=== PATIENT | female | born 1955 | race Caucasian/White ===

== ENCOUNTER 2017-09-07 11:36 | Inpatient (IN) | payer OTHER ==
[~2017-09-07] VITALS: Ht 162.6 cm; Wt 59.0 kg
[~2017-09-07 11:36] MED LIST: ADVIL200 MG PO; APAP ARTHRITIS650 MG PO; CIPRO 500MG TA500 MG PO; CIPRO500 M1 PO; FLAGYL 25O MG250 M1 PO; FLAGYL500 MG PO; GAS-X80 MG PO; LISINOPRIL AND1 TAB PO; LISINOPRIL-HCTZ 10-1; LISINOPRIL10 M1 PO; OXYCODONE5 M1 PO; PERCOCET 325 MG1 TA2 PO; VALIUM10 M1 PO
--- NOTE | 2017-09-07 13:16 | ED GI/GU/ABDOMINAL COMPLAINT ---
History of Present Illness General Chief Complaint: Abdominal Pain/Flank Pain Stated Complaint: L SIDE ABD PAIN Source: patient Exam Limitations: no limitations Allergies Coded Allergies: Sulfa (Sulfonamide Antibiotics) (UNKNOWN 11/07/15) Reconcile Medications Diazepam (Valium) 10 MG TABLET 0.25 TAB PO DAILY PRN ANXIETY (Reported) Lisinopril 10 MG TABLET 1 TAB PO DAILY HEART (Reported) Triage Note: PT TO ED C/O LEFT SIDED ABD PAIN X A FEW DAYS. STATES LEFT SIDE IS SWOLLEN. ALSO C/O SYNCOPE THIS AM. HEARD "A CRASH" AND SHE WAS ON THE FLOOR. UNKNOWN HEAD STRIKE. C/O NAUSEA. DENIES V/D. TO EKG [place]. Triage Nurses Notes Reviewed? yes ? N Is pt currently ? No HPI: Ms. Sawyer is a 62 yo f with a past medical history significant for acute diverticulitis s/p bowel resection, sessile polyps (colonoscopy 2016), hypertension, who presents to the ED with LLQ abdominal pain and nausea for few days. She also states that she gets a "fluttery" feeling in her lower abdomen with subsequent pain. Patient also reports this morning she was on her way to the bathroom and woke up on the floor. Her who witnessed the fall reported she hit that door on her way out the room and lost consciousness for a couple of seconds. She denies fever, chills, SOB, palpitations, vomiting, urinary or bowel symptoms (Rj MILLS,[facility]) Vital Signs & Intake/Output Vital Signs & Intake/Output Vital Signs Date Time Temp Pulse Resp B/P B/P Pulse O2 O2 Flow FiO2 Mean Ox Delivery Rate 09/08 1437 98.6 74 20 110/72 93 Room Air 09/08 0925 115/80 09/08 0543 98.0 67 20 100/64 94 Room Air 09/08 0000 94 Room Air 09/07 2242 98.3 84 18 116/64 94 Room Air 09/07 1919 97.8 78 20 135/84 98 09/07 1844 98.3 91 19 124/81 99 Room Air 09/07 1828 98.5 ED Intake and Output 09/08 0000 09/07 1200 Intake Total 320 Output Total 300 Balance 20 Intake, IV 320 Intake, Oral 0 Output, Urine 300 Patient 130 lb 130 lb Weight Weight Reported by Patient Estimated Measurement Method (Arsalan Page MD) Past History Travel History Traveled to [place] past 21 day No Medical History Any Pertinent Medical History? see below for history Neurological: NONE EENT: NONE Cardiovascular: hypertension Respiratory: NONE Gastrointestinal: diverticulitis, BOWEL OBSTRUCTION Hepatic: NONE Renal: NONE Musculoskeletal: NONE Psychiatric: NONE Endocrine: NONE Blood Disorders: NONE Cancer(s): NONE CHROMIUM PLATER/Reproductive: NONE History of MRSA: No History of VRE: No History of CDIFF: No Surgical History Surgical History: appendectomy, BOWEL RESECTION LYSIS OF ADHESIONS Psychosocial History Who do you live with Patient and family Services at Home None What is your primary language Mongolian Tobacco Use: Quit >30 days ago ETOH Use: denies use Illicit Drug Use: denies illicit drug use Family History Family History, If Any: SISTER FHx: diverticulitis Hx Contributory? Yes (Rj MILLS,Johnathon) Review of Systems Review of Systems Constitutional: Reports: see HPI. (Johnathon De La Rosa MD) Physical Exam Physical Exam General Appearance: well developed/nourished, no apparent distress, alert, awake Head: atraumatic, normal appearance Eyes: Bilateral: normal appearance, PERRL, EOMI. Ears, Nose, Throat, Mouth: hearing grossly normal, moist mucous membrane Neck: normal inspection, supple, full range of motion Respiratory: normal breath sounds, lungs clear Gastrointestinal: LLQ tenderness Extremities: normal range of motion Core Measures ACS in differential dx? No Sepsis Present: No Sepsis Focused Exam Completed? No (Johnathon De La Rosa MD) Progress Radiology Impression: CT ABD/Pel: Acute diverticulitis with ? microperforation CT head: negative Initial ED EKG: none (Johnathon De La Rosa MD) Plan of Care: Orders Procedure Date/time Status CBC WITHOUT DIFFERENTIAL 09/09 06 Active Clear Liquid Diet 09/08 D Active Nothing by Mouth 09/08 B Complete CBC WITHOUT DIFFERENTIAL 09/08 0600 Complete BASIC ELECTROLYTES PLUS BUN&CR 09/08 0600 Complete Vital Signs 09/07 2350 Active Teach/Educate 09/07 2350 Active Pain Treatment and Response 09/07 2350 Active Nutritional Intake, Monitor 09/07 2350 Active Isolation 09/07 2350 Active Intake & Output 09/07 2350 Active Patient Care Conference 09/07 2350 Active Activity/Ambulation 09/07 2350 Active Intake & Output 09/07 2250 Active Vital Signs 09/07 224 Active TRANSFER ORDERS 09/07 193 Complete Pathway - chart 09/07 190 Active Patient Data 09/07 1907 Active Code Status 09/07 190 Active Admit to inpatient 09/07 UNK Active VTE Mechanical Prophylaxis 09/07 UNK Active Vital Signs 09/07 UNK Complete Intake & Output 09/07 UNK Complete Activity/Ambulation 09/07 UNK Complete Current Medications Sig/Eliza Start time Last Medication Dose Stop Time Status Admin Ceftriaxone Sodium 1,000 MG DAILY 09/08 1000 AC 09/08 (Rocephin) 0925 Lisinopril 10 MG DAILY 09/08 1000 AC 09/08 (Prinivil) 0925 Ceftriaxone Sodium 1,000 MG ONCE ONE 09/08 0800 CAN (Rocephin) 09/08 0801 Omeprazole 40 MG DAILY AC 09/08 0700 AC 09/08 (Prilosec) 0611 Heparin Sodium 5,000 UNIT Q8 09/08 0600 AC (Porcine) Metronidazole 500 MG IQ8 09/08 0000 AC 09/08 (Flagyl) 1649 N/A 1 UNIT (No Carrier) Acetaminophen 650 MG Q6P PRN 09/07 2245 AC (Tylenol) Acetaminophen 1,000 MG Q6H PRN 09/07 2245 AC 09/08 (Ofirmev) 1653 N/A 1 UNIT (No Carrier) Morphine Sulfate 4 MG Q2P PRN 09/07 2245 AC (Morphine) Ondansetron HCl 4 MG Q6P PRN 09/07 2245 AC (Zofran) Oxycodone/ 1 TAB Q4P PRN 09/07 2245 AC Acetaminophen (Percocet) Oxycodone/ 2 TAB Q4P PRN 09/07 2245 AC Acetaminophen (Percocet) Promethazine HCl 12.5 MG Q6P PRN 09/07 2245 AC (Phenergen) 09/14 2244 Dextrose/Sodium 1,000 ML Q10H 09/07 2230 AC 09/08 Chloride 0925 (D5-Normal Saline) Diazepam 2 MG BID PRN 09/07 1945 AC 09/08 (Valium) 1252 Laboratory Tests 09/08/17 0721: Anion Gap 9, Estimated GFR > 60, BUN/Creatinine Ratio 15.7, CBC w Diff NO MAN DIFF REQ, RBC 3.87 L, MCV 88.3, MCH 29.6, MCHC 33.5, RDW 13.0, MPV 8.2, Gran % 72.2, Lymphocytes % 15.3 L, Monocytes % 10.4 H, Eosinophils % 1.6, Basophils % 0.5, Absolute Granulocytes 5.7, Absolute Lymphocytes 1.2, Absolute Monocytes 0.8 H, Absolute Eosinophils 0.1, Absolute Basophils 0 Hand-Off Endorsed To: Brigido Avila MD Endorsed Time: 1521 Pending: CT (abd) (Arsalan Page MD) Differential Diagnosis: bowel obstruction, diverticulitis, ischemic bowel, perforated viscous, COLITIS Comments: 09/07/2017 6:57:31 PM patient signed out to me by resident at shift change advisor. Patient is being evaluated by the surgical service and it seems will be admitted to Dr. Lin. 09/07/2017 7:17:18 PM according to surgical PA patient will be admitted for acute diverticulitis to the surgical service. (Brigido Avila MD) Departure Departure Condition: Stable Referrals: Hunter Wilde MD (PCP/Family) Departure Forms: Customer Survey General Discharge Information Comments Spoke with Dr. Lin who will come evaluate patient to r/o microperforation (Johnathon De La Rosa MD) Resident Co-Sign Statement Statement: ED Attending supervision documentation- x I saw and evaluated the patient. I have also reviewed all the pertinent lab results and diagnostic results. I agree with the findings and the plan of care as documented in the Resident's documentation. LLQ tenderness, guarding, hx diverticulitis, diverticulosis, SBO. Short syncopal episode reported by spouse. [] I have reviewed the ED Record and agree with the Resident's documentation. [] Additions or exceptions (if any) to the Resident's note and plan are summarized below: [] (Arsalan Page MD) Departure Disposition: STILL A PATIENT Clinical Impression Primary Impression: Diverticulitis of colon with perforation Qualifiers: Diverticulitis bleeding: without bleeding Qualified Code: K57.20 - Diverticulitis of large intestine with perforation and abscess without bleeding Admission Note Spoke With: Philippe Lin MD Documentation of Exam: Documentation of any treatments & extenuating circumstances including Concerns Regarding Discharge (functional status, medication knowledge or non-compliance, living conditions, etc.) that warrant an admission rather than observation: Patient has perforated diverticulitis that is therefore an extremely high risk of peritonitis, sepsis and mortality. This patient cannot be safely treated at home and would likely return in worse clinical condition. To avoid serious consequences the patient should be treated aggressively with IV antibiotics and close clinical monitoring of vital signs and physical examination. If the patient's condition worsens then surgical intervention should be strongly considered. Given the potential serious nature of this patient's current condition, I feel she will require a multiple day hospitalization and her recovery could be prolonged and complicated. (Margarita MILLS,Brigido King) Critical Care Note Critical Care Note Critical Care Time: 30-74 min (Brigido Avila MD)
[2017-09-07 13:50] LABS: ABSOLUTE BASOPHIL COUNT 0 /CUMM (0.0-0.2); ABSOLUTE EOSINOPHIL COUNT 0 /CUMM (0.0-0.7); ABSOLUTE GRANULOCYTE CT 12.3 /CUMM (1.4-6.5); ABSOLUTE LYMPH COUNT 1.1 /CUMM (1.2-3.4); BASOPHIL % 0.1 % (0.0-2.0); EOSINOPHIL % 0.1 % (0-5); HEMATOCRIT 43.1 % (37-47); MEAN CORPUSCULAR HGB 29.3 PG (27.0-31.0); MEAN CORPUSCULAR HGB CONC 33.4 G/DL (33.0-37.0); MEAN CORPUSCULAR VOLUME 87.9 FL (81.0-99.0); MEAN PLATELET VOLUME 8.1 FL (7.4-10.4); PLATELET COUNT 289 /CUMM (130-400); RED BLOOD CELL CT 4.91 /CUMM (4.20-5.40); WHITE BLOOD CELL COUNT 14.4 /CUMM (4.8-10.8)
[2017-09-07 14:02] LABS: GRANULOCYTE % 85.6 % (42.2-75.2)
--- NOTE | 2017-09-07 14:20 | CT SCAN REPORT ---
EXAMINATION: CT HEAD WITHOUT CONTRAST CLINICAL INFORMATION: Syncope. Assess for ischemia or hemorrhage. COMPARISON: None. TECHNIQUE: Contiguous axial imaging was performed from the skull base to vertex without intravenous administration of contrast. DLP: 604.91 mGy-cm FINDINGS: There is no evidence of acute intracranial hemorrhage or territorial infarction. No abnormal mass effect or midline shift is seen. Squires to white matter differentiation is well preserved. No extra-axial fluid collections are identified. The ventricles are normal in size. There are areas of low attenuation in the deep white matter consistent with chronic microvascular ischemic changes. The osseous structures and soft tissues are normal. The mastoid air cells and visualized portions of the paranasal sinuses are well aerated. IMPRESSION: 1. There are no acute bleeds or territorial infarcts. 2. There are mild chronic microvascular ischemic changes.
--- NOTE | 2017-09-07 14:33 | RADIOLOGY REPORT ---
EXAMINATION: XR PORTABLE ABDOMEN CLINICAL INFORMATION: Left-sided abdominal pain. History of abdominal adhesions. Assess for acute pathology. COMPARISON: CT scan of the abdomen and pelvis 06/15/2016. Plain films of the abdomen 02/16/2015. TECHNIQUE: AP supine view of the abdomen was obtained. FINDINGS: No dilated loops of large or small bowel are demonstrated. There are multiple surgical clips and anastomotic sutures in the left lower abdomen, similar compared to prior imaging. There is moderate stool in the descending colon. The paravertebral structures are unremarkable. There are spondylitic changes in the upper lumbar spine, similar compared to the prior study. IMPRESSION: 1. There is no evidence of ileus or obstruction. 2. There are postoperative changes in the left lower abdomen, demonstrated on prior imaging.
--- NOTE | 2017-09-07 16:43 | CT SCAN REPORT ---
EXAMINATION: CT ABDOMEN AND PELVIS WITH CONTRAST CLINICAL INFORMATION: Left lower quadrant abdominal pain. History of adhesions. COMPARISON: CT abdomen and pelvis 06/15/2016, 11/07/2015, 02/15/2015. TECHNIQUE: Multidetector volumetric imaging was performed of the abdomen and pelvis following IV administration of 95 mL of Optiray 320 intravenous contrast. Sagittal and coronal reformatted images were obtained on the technologist's workstation. DLP: 269.81 mGy-cm FINDINGS: LUNG BASES: Minimal scarring is noted at the right lung base. The lung bases are otherwise clear. No pleural effusions. Trace pericardial effusion versus thickening. Cardiac size is normal. LIVER, GALLBLADDER, AND BILIARY TREE: The liver is normal in size, shape and attenuation. A 0.6 cm low-attenuation in the hepatic segment 6 is stable since previous CT of 02/15/2015. No additional focal liver lesions are noted. The gallbladder is unremarkable with no evidence of radiopaque gallstones, gallbladder wall thickening, or obvious pericholecystic inflammatory changes. PANCREAS: Unremarkable. SPLEEN: Unremarkable. ADRENAL GLANDS: Unremarkable. KIDNEYS AND URETERS: The kidneys are normal in size, shape, and attenuation. No hydronephrosis, hydroureter, or calculi seen. No perinephric stranding. BLADDER: Underdistended and therefore not optimally evaluated however no gross abnormality is noted. GASTROINTESTINAL TRACT: Colocolic anastomosis is noted in the left pelvis. There is marked circumferential wall thickening of the mid to distal descending colon with pericolonic fat stranding. Scattered diverticula are noted in the descending colon. A tiny focus of air on the anterior aspect of the distal descending colon (series 4 image [id number]) is noted and it is unclear whether this represents an intramural air focus versus air in the diverticulum versus extraluminal air focus. Moderate diverticulosis of the remainder of the colon is noted. An appendix is not clearly identified, however, there are no inflammatory changes in the expected location of the appendix. The stomach and small bowel are not dilated. PERITONEAL CAVITY: There is a small free fluid in the pelvis. ABDOMINAL WALL: No significant hernia is appreciated. LYMPH NODES: No evidence of pathologically enlarged lymph nodes. VASCULAR: The aortoiliac vessels are normal in caliber and well opacified. The celiac axis and SMA are normal in caliber and well patent. KASANDRA appears patent as well. PELVIC VISCERA: The retroverted uterus is unremarkable. No adnexal mass. OSSEOUS STRUCTURES: Mild reverse S-shaped scoliosis of the thoracolumbar spine is noted. No acute or suspicious osseous lesion. IMPRESSION: 1. Circumferential thickening of the wall of the mid to distal descending colon with moderate pericolonic fat stranding. Scattered diverticula are noted throughout the descending colon and remainder of the colon. The differential possibilities include focal colitis versus acute diverticulitis with reactive wall thickening of the colon. Recommend clinical correlation. No pericolonic abscess collection. A small focus of air along the anterior aspect of the distal descending colon as described above may represent focus of intramural air versus air in the diverticulum versus extraluminal air. No free intraperitoneal air is noted otherwise. Small free fluid in the pelvis. 2. Subcentimeter low-attenuation in the liver is stable since previous CT of 02/15/2015.
--- NOTE | 2017-09-07 19:57 | History & Physical Pre-Op ---
Gerry Whitehead 09/07/171946: General Information and HPI MD Statement: I have seen and personally examined AMBERLY SAENZ and documented this H&P. The patient is a 62 year old F who presented with a patient stated chief complaint of [abdominal pain]. Source of Information: patient Exam Limitations: no limitations History of Present Illness: This is a 62-year-old female with history of diverticulitis, history of colon resection when she was 18 years old secondary to diverticulitis, history of small bowel obstruction and subsequent lysis of adhesion greater than 10 years ago, presents with left lower quadrant and left lower lateral flank pain associated with nausea, decreased appetite and generalized malaise over the last 2-3 days which is been getting worse. She has had minimal appetite and pain is exacerbated after eating. She's had small frequent soft bowel movements. She was evaluated in the ER secondary to her worsening symptoms and a CT scan was performed which shows diverticulitis with microperforation. Surgery was consulted for further management. Of note patient states that earlier today she was feeling very weak, had not been eating or drinking much throughout the day, was feeling lightheaded and nauseous, attempted to go to the bathroom to urinate when she felt lightheaded and dizzy suddenly, went unconscious and fell to the ground, her found her immediately after and she woke without apparent significant injury, she did hit her head on the way down. CAT scan was performed of her head as well as in the emergency department which was negative, she has no physical complaints or neurologic symptoms. On my evaluation. It is likely she had a vasovagal episode due to her illness. Allergies/Medications Allergies: Coded Allergies: Sulfa (Sulfonamide Antibiotics) (UNKNOWN 11/07/15) Home Med list Diazepam (Valium) 10 MG TABLET 0.25 TAB PO DAILY PRN ANXIETY (Reported) Lisinopril 10 MG TABLET 1 TAB PO DAILY HEART (Reported) Past History Medical History Neurological: NONE EENT: NONE Cardiovascular: hypertension Respiratory: NONE Gastrointestinal: diverticulitis, BOWEL OBSTRUCTION Hepatic: NONE Renal: NONE Musculoskeletal: NONE Psychiatric: anxiety Endocrine: NONE Blood Disorders: NONE Cancer(s): NONE CHILD CARE SPECIALIST/Reproductive: NONE History of MRSA: No History of VRE: No History of CDIFF: No Surgical History Pertinent Surgical History: appendectomy, BOWEL RESECTION LYSIS OF ADHESIONS, lysis of adhesion Past Family/Social History Family History Relations & Conditions if any SISTER FHx: diverticulitis Psychosocial History Who Do You Live With? spouse Services at Home None ETOH Use: denies use Illicit Drug Use: denies illicit drug use Functional Ability ADLs Independent: dressing, eating, toileting, bathing. Review of Systems Review of Systems: Review of systems: See HPI, all other systems negative. Constitutional: See HPI HEENT: No visual changes no sore throat no congestion Cardiovascular: No chest pain ,palpitation , orthopnea or ankle swelling Skin: No jaundice no rashes Respiratory: No dyspnea cough sputum or hemoptysis GI: See HPI : No dysuria no hematuria Musclulo skeletal: No back pain no neck pain, Neurologic: No numbness no confusion Psych: No stress anxiety or depression,. Heme/endocrine: No bruising no bleeding no polyuria or polydipsia Immunology: No splenectomy or history of AIDS Exam & Diagnostic Data Last 24 Hrs of Vital Signs/I&O Vital Signs Date Time Temp Pulse Resp B/P B/P Pulse O2 O2 Flow FiO2 Mean Ox Delivery Rate 09/07 1919 97.8 78 20 135/84 98 09/07 1844 98.3 91 19 124/81 99 Room Air 09/07 1828 98.5 09/07 1553 98.5 88 19 118/82 97 Room Air 09/07 1408 98.4 94 20 139/87 98 09/07 1155 99.1 110 20 128/85 96 Room Air Intake & Output 09/07 1600 09/07 0800 09/07 0000 Intake Total Output Total Balance Patient 130 lb Weight Weight Estimated Measurement Method Physical Exam: Well-developed well-nourished no apparent distress. HEENT: Atraumatic, extraocular motion intact,dry mucous membranes, Neck: Supple, no lymphadenopathy Respiratory: No respiratory distress clear to auscultation bilateral. Heart: Regular rate and rhythm no murmur Abdomen: Moderate to severe tenderness left lower quadrant left lateral flank region, minimal distention. Positive bowel sounds. Extremities: No edema, no calf pain Neuro: Alert and oriented x3 Psych: Mood affect normal, normal memory normal judgment. Skin: Warm and dry, no rash on exposed skin Last 24 Hrs of Labs/Neftali: Laboratory Tests 09/07/17 1520: Urine Color YEL, Urine Clarity CLEAR, Urine pH 6.0, Ur Specific [place] 1.010, Urine Protein NEG, Urine Ketones 15 H, Urine Nitrite NEG, Urine Bilirubin NEG, Urine Urobilinogen 0.2, Ur Leukocyte Esterase NEG, Ur Microscopic EXAM NOT REQUIRED, Urine Hemoglobin NEG, Urine Glucose NEG 09/07/17 1331: Anion Gap 14, Estimated GFR > 60, BUN/Creatinine Ratio 20.0, Glucose 110 H, Calcium 10.7 H, Total Bilirubin 1.1, AST 15, ALT 20, Alkaline Phosphatase 99, Troponin I < 0.01, Total Protein 6.9, Albumin 4.3, Globulin 2.6, Albumin/ Globulin Ratio 1.7, CBC w Diff NO MAN DIFF REQ, RBC 4.91, MCV 87.9, MCH 29.3, MCHC 33.4, RDW 13.0, MPV 8.1, Gran % 85.6 H, Lymphocytes % 7.3 L, Monocytes % 6.9, Eosinophils % 0.1, Basophils % 0.1, Absolute Granulocytes 12.3 H, Absolute Lymphocytes 1.1 L, Absolute Monocytes 1.0 H, Absolute Eosinophils 0, Absolute Basophils 0 Diagnostic Data Other Results PATIENT: AMBERLY SAENZ PRESENT AGE: 62 PATIENT ACCOUNT NO: [id number] : 54 LOCATION: [facility] ORDERING PHYSICIAN: Johnathon De La Rosa MD SERVICE DATE: 09/07/17- EXAM TYPE: CAT - CT ABD & PELVIS W IV CONTRAST EXAMINATION: CT ABDOMEN AND PELVIS WITH CONTRAST CLINICAL INFORMATION: Left lower quadrant abdominal pain. History of adhesions. COMPARISON: CT abdomen and pelvis 06/15/2016, 11/07/2015, 02/15/2015. TECHNIQUE: Multidetector volumetric imaging was performed of the abdomen and pelvis following IV administration of 95 mL of Optiray 320 intravenous contrast. Sagittal and coronal reformatted images were obtained on the technologist's workstation. DLP: 269.81 mGy-cm FINDINGS: LUNG BASES: Minimal scarring is noted at the right lung base. The lung bases are otherwise clear. No pleural effusions. Trace pericardial effusion versus thickening. Cardiac size is normal. LIVER, GALLBLADDER, AND BILIARY TREE: The liver is normal in size, shape and attenuation. A 0.6 cm low-attenuation in the hepatic segment 6 is stable since previous CT of 02/15/2015. No additional focal liver lesions are noted. The gallbladder is unremarkable with no evidence of radiopaque gallstones, gallbladder wall thickening, or obvious pericholecystic inflammatory changes. PANCREAS: Unremarkable. SPLEEN: Unremarkable. ADRENAL GLANDS: Unremarkable. KIDNEYS AND URETERS: The kidneys are normal in size, shape, and attenuation. No hydronephrosis, hydroureter, or calculi seen. No perinephric stranding. BLADDER: Underdistended and therefore not optimally evaluated however no gross abnormality is noted. GASTROINTESTINAL TRACT: Colocolic anastomosis is noted in the left pelvis. There is marked circumferential wall thickening of the mid to distal descending colon with pericolonic fat stranding. Scattered diverticula are noted in the descending colon. A tiny focus of air on the anterior aspect of the distal descending colon (series 4 image [id number]) is noted and it is unclear whether this represents an intramural air focus versus air in the diverticulum versus extraluminal air focus. Moderate diverticulosis of the remainder of the colon is noted. An appendix is not clearly identified, however, there are no inflammatory changes in the expected location of the appendix. The stomach and small bowel are not dilated. PERITONEAL CAVITY: There is a small free fluid in the pelvis. ABDOMINAL WALL: No significant hernia is appreciated. LYMPH NODES: No evidence of pathologically enlarged lymph nodes. VASCULAR: The aortoiliac vessels are normal in caliber and well opacified. The celiac axis and SMA are normal in caliber and well patent. KASANDRA appears patent as well. PELVIC VISCERA: The retroverted uterus is unremarkable. No adnexal mass. OSSEOUS STRUCTURES: Mild reverse S-shaped scoliosis of the thoracolumbar spine is noted. No acute or suspicious osseous lesion. IMPRESSION: 1. Circumferential thickening of the wall of the mid to distal descending colon with moderate pericolonic fat stranding. Scattered diverticula are noted throughout the descending colon and remainder of the colon. The differential possibilities include focal colitis versus acute diverticulitis with reactive wall thickening of the colon. Recommend clinical correlation. No pericolonic abscess collection. A small focus of air along the anterior aspect of the distal descending colon as described above may represent focus of intramural air versus air in the diverticulum versus extraluminal air. No free intraperitoneal air is noted otherwise. Small free fluid in the pelvis. 2. Subcentimeter low-attenuation in the liver is stable since previous CT of 02/15/2015. DICTATED BY: Lexa Moulton MD DATE/TIME DICTATED:09/07/171602 ADVERTISING SOLICITOR:ALFA DATE/TIME TRANSCRIBED:09/07/171602 CONFIDENTIAL, DO NOT COPY WITHOUT APPROPRIATE AUTHORIZATION. <Electronically signed in Other Vendor System> SIGNED BY: Lexa Moulton MD 09/07/17 1643 Assessment/Plan Assessment/Plan: 62-year-old female with complicated diverticulitis with acute microperforation Patient was seen and examined by Dr. Lin as well. She requires admission to the hospital, nothing by mouth, IV fluids, IV antibiotics with Rocephin and Flagyl. She needs to be monitored with serial abdominal exams to be sure that her condition does not worsen requiring surgery and to monitor to see if she develops an abscess which will require interventional radiology drainage. Advance her diet as tolerated. Pain medication as needed Regular home meds Heparin subcutaneous for DVT prophylaxis, out of bed ad armando. As Ranked By This Provider Problem List: 1. Diverticulitis of colon with perforation Philippe Lin MD 09/08/17 1059: Attending MD Review Statement Attending Statement Attending MD Statement: examined this patient, discuss w/resident/PA/DRY PLACER MACHINE OPERATOR, reviewed images Attending Assessment/Plan: PATIENT WITH RECURRENT LEFT COLONIC DIVERTICULITIS, IMMEDIATELY PROXIMAL TO SIGMOID ANASTOMOSIS. tHERE IS FOCAL CONTAINED PERFORATION BUT NO INDICATION THAT EMERGENT SURGICAL INTERVENTION IS NECESSARY. PRIOR EPISODES OF DIVERTICULITIS HAVE BEEN OTHER AREAS OF THE COLON INCLUDING TRANSVERSE AND RIGHT COLON. HER EPISODE OF SYNCOPE WAS LIKELY RELATED TO DEHYDRATION/ORTHOSTASIS/ACUTE INFECTION. RECOMMEND ADMISSION FOR BOWEL REST AND IV BROAD SPECTRUM ANTIBIOTICS. FLUID HYDRATION. SERIAL ABDOMINAL EXAMINATION.
--- NOTE | 2017-09-07 19:59 | Admission Core Measures ---
Acute Coronary Syndrome (CM) ACS Core Measures Acute Coronary Syndrome Diagnosis No Congestive Heart Failure (NEW) CHF Core Measures Congestive Heart Failure Diagnosis No Cerebrovascular Accident (NEW) CVA Core Measures CVA/TIA Diagnosis No Venous Thromboembolism VTE Core Gloria (View Protocol) VTE Risk Factors Age>40 No Mechanical VTE Prophylaxis d/t N/A MechProphylax Ordered No VTE Pharm Prophylaxis d/t NA PharmProphylax ordered Problem List As ranked by this Provider includes Assessment & Plan 1. Diverticulitis of colon with perforation HOME MEDS Home Med List Diazepam (Valium) 10 MG TABLET 0.25 TAB PO DAILY PRN ANXIETY (Reported) Lisinopril 10 MG TABLET 1 TAB PO DAILY HEART (Reported) Discontinued Medications Ciprofloxacin HCl (Cipro) 500 MG TABLET 1 TAB PO BID DIVERTICULITIS Discontinued reason: Med no longer needed Metronidazole (Flagyl) 500 MG TABLET 1 TAB PO TID DIVERTICULITIS Discontinued reason: Med no longer needed
[2017-09-07 22:42] VITALS: BP 116/64
[2017-09-08 05:43] VITALS: BP 100/64
--- NOTE | 2017-09-08 07:27 | PN- General Surgery ---
See Addendum Subjective Subjective: still some abd pain, feeling "gassy". pain lessened after iv tylenol. taking some ice chips. no n/v. ?flatus, no bm. not hungry. No cp/sob. no oob. +void Objective Vital Signs and I&Os Vital Signs Date Time Temp Pulse Resp B/P B/P Pulse O2 O2 Flow FiO2 Mean Ox Delivery Rate 09/08 0543 98.0 67 20 100/64 94 Room Air 09/07 2242 98.3 84 18 116/64 94 Room Air 09/07 1919 97.8 78 20 135/84 98 09/07 1844 98.3 91 19 124/81 99 Room Air 09/07 1828 98.5 09/07 1553 98.5 88 19 118/82 97 Room Air 09/07 1408 98.4 94 20 139/87 98 09/07 1155 99.1 110 20 128/85 96 Room Air Intake & Output 09/08 0800 09/08 0000 09/07 1600 09/07 0800 09/07 0000 09/06 1600 Intake Total 320 Output Total 300 Balance 20 Intake, IV 320 Intake, Oral 0 Output, Urine 300 Patient 130 lb 130 lb Weight Weight Reported by Patient Estimated Measurement Method Physical Exam: GEN- NAD CARD- S1S2 RRR PULM- CTAB ABD- soft, distended, ttp mid-lower left, no r/g, +bs EXT- calves soft nt bl Current Medications: Current Medications Sig/Eliza Start time Last Medication Dose Route Stop Time Status Admin Acetaminophen 650 MG Q6P PRN 09/07 2244 AC PO Acetaminophen 1,000 MG Q6H PRN 09/07 2245 AC 09/08 N/A 1 UNIT IV 0040 Acetaminophen 650 MG Q6P PRN 09/07 1915 DC PO Acetaminophen 0 .STK-MED ONE 09/07 1823 DC IV Acetaminophen 1,000 MG ONCE ONE 09/07 1730 DC N/A 1 UNIT IV 09/07 1744 Acetaminophen 0 .STK-MED ONE 09/07 1407 DC IV Acetaminophen 1,000 MG ONCE ONE 09/07 1345 DC 09/07 N/A 1 UNIT IV 09/07 1359 1405 Ceftriaxone Sodium 1,000 MG DAILY 09/08 1000 AC IV Ceftriaxone Sodium 1,000 MG ONCE ONE 09/08 0800 CAN IV 09/08 0801 Ceftriaxone Sodium 1,000 MG ONCE ONE 09/08 0800 DC IV 09/08 0801 Ceftriaxone Sodium 0 .STK-MED ONE 09/07 1823 DC .ROUTE Ceftriaxone Sodium 1,000 MG ONCE ONE 09/07 1730 DC 09/07 IV 09/07 1731 1829 Dextrose/Sodium 1,000 ML Q10H 09/07 2230 AC 09/07 Chloride IV 2239 Dextrose/Sodium 1,000 ML .Q10H 09/07 1915 DC Chloride IV Diazepam 2 MG ONCE ONE 09/07 2014 DC 09/07 PO 09/07 Diazepam 0 .STK-MED ONE 09/07 1959 DC PO Diazepam 2 MG BID PRN 09/07 1945 AC PO Heparin Sodium 5,000 UNIT Q8 09/08 0600 AC (Porcine) SC Heparin Sodium 5,000 UNIT Q8 09/07 2200 DC (Porcine) SC Lisinopril 10 MG DAILY 09/08 1000 AC PO Metronidazole 500 MG IQ8 09/08 0000 DC N/A 1 UNIT IV Metronidazole 500 MG IQ8 09/08 0000 AC 09/08 N/A 1 UNIT IV 0054 Metronidazole 500 MG ONCE ONE 09/07 1730 DC 09/07 N/A 1 UNIT IV 09/07 1829 1856 Morphine Sulfate 4 MG Q2P PRN 09/07 2244 AC IV Morphine Sulfate 4 MG Q2P PRN 09/07 1914 DC IV Omeprazole 40 MG DAILY AC 09/08 0700 DC PO Omeprazole 40 MG DAILY AC 09/08 0700 AC 09/08 PO 0611 Ondansetron HCl 4 MG Q6P PRN 09/07 2244 AC IV Ondansetron HCl 4 MG Q6P PRN 09/07 1914 DC IV Oxycodone/ 1 TAB Q4P PRN 09/07 2244 AC Acetaminophen PO Oxycodone/ 2 TAB Q4P PRN 09/07 2244 AC Acetaminophen PO Oxycodone/ 1 TAB Q4P PRN 09/07 1914 DC Acetaminophen PO Oxycodone/ 2 TAB Q4P PRN 09/07 1914 DC Acetaminophen PO Promethazine HCl 12.5 MG Q6P PRN 09/07 224 AC IV 09/14 224 Promethazine HCl 12.5 MG Q6P PRN 09/07 1914 DC IV 09/14 191 Sodium Chloride 1,000 ML BOLUS ONE 09/07 1345 DC 09/07 IV 09/07 1444 1405 Results Last 48 Hours of Labs: Laboratory Tests 09/08 09/07 0721 1520 Chemistry Sodium Pending Potassium Pending Chloride Pending Carbon Dioxide Pending Anion Gap Pending BUN Pending Creatinine Pending BUN/Creatinine Ratio Pending Hematology CBC w Diff Pending WBC Pending RBC Pending Hgb Pending Hct Pending MCV Pending MCH Pending MCHC Pending RDW Pending Plt Count Pending MPV Pending Urines Urine Color (YEL,AMB,STR) YEL Urine Clarity (CLEAR) CLEAR Urine pH (5.0 - 8.0) 6.0 Ur Specific [place] (1.001 - 1.035) 1.010 Urine Protein (NEG,<30 MG/DL) NEG Urine Ketones (NEG) 15 H Urine Nitrite (NEG) NEG Urine Bilirubin (NEG) NEG Urine Urobilinogen (0.1 - 1.0 EU/dl) 0.2 Ur Leukocyte Esterase (NEG) NEG Ur Microscopic EXAM NOT REQUIRED Urine Hemoglobin (NEG) NEG Urine Glucose (N MG/DL) NEG 09/07 1331 Chemistry Sodium (137 - 145 mmol/L) 143 Potassium (3.5 - 5.1 mmol/L) 4.1 Chloride (98 - 107 mmol/L) 103 Carbon Dioxide (22 - 30 mmol/L) 26 Anion Gap (5 - 16) 14 BUN (7 - 17 mg/dL) 16 Creatinine (0.5 - 1.0 mg/dL) 0.8 Estimated GFR (>60 ml/min) > 60 BUN/Creatinine Ratio (7 - 25 %) 20.0 Glucose (65 - 99 mg/dL) 110 H Calcium (8.4 - 10.2 mg/dL) 10.7 H Total Bilirubin (0.2 - 1.3 mg/dL) 1.1 AST (14 - 36 U/L) 15 ALT (9 - 52 U/L) 20 Alkaline Phosphatase (<127 U/L) 99 Troponin I (< 0.11 ng/ml) < 0.01 Total Protein (6.3 - 8.2 g/dL) 6.9 Albumin (3.5 - 5.0 g/dL) 4.3 Globulin (1.9 - 4.2 gm/dL) 2.6 Albumin/Globulin Ratio (1.1 - 2.2 %) 1.7 Hematology CBC w Diff NO MAN DIFF REQ WBC (4.8 - 10.8 /CUMM) 14.4 H RBC (4.20 - 5.40 /CUMM) 4.91 Hgb (12.0 - 16.0 G/DL) 14.4 Hct (37 - 47 %) 43.1 MCV (81.0 - 99.0 FL) 87.9 MCH (27.0 - 31.0 PG) 29.3 MCHC (33.0 - 37.0 G/DL) 33.4 RDW (11.5 - 14.5 %) 13.0 Plt Count (130 - 400 /CUMM) 289 MPV (7.4 - 10.4 FL) 8.1 Gran % (42.2 - 75.2 %) 85.6 H Lymphocytes % (20.5 - 51.1 %) 7.3 L Monocytes % (1.7 - 9.3 %) 6.9 Eosinophils % (0 - 5 %) 0.1 Basophils % (0.0 - 2.0 %) 0.1 Absolute Granulocytes (1.4 - 6.5 /CUMM) 12.3 H Absolute Lymphocytes (1.2 - 3.4 /CUMM) 1.1 L Absolute Monocytes (0.10 - 0.60 /CUMM) 1.0 H Absolute Eosinophils (0.0 - 0.7 /CUMM) 0 Absolute Basophils (0.0 - 0.2 /CUMM) 0 Assessment/Plan Assessment/Plan A- 62F microperf diverticulitis, with continued abd tenderness and no appetite, afebrile and otherwise stable. P- NPO, IVF serial abd exams am labs pending cont pema/flag OOB, ambulate, ALPS, hep sq strict I&Os ?clears later will dw attending Core Measures Venous Thromboembolism VTE Risk Factors Age>40 No Mechanical VTE Prophylaxis d/t N/A MechProphylax Ordered No VTE Pharm Prophylaxis d/t NA PharmProphylax ordered
[2017-09-08 08:15] LABS: ABSOLUTE BASOPHIL COUNT 0 /CUMM (0.0-0.2); ABSOLUTE EOSINOPHIL COUNT 0.1 /CUMM (0.0-0.7); ABSOLUTE GRANULOCYTE CT 5.7 /CUMM (1.4-6.5); ABSOLUTE LYMPH COUNT 1.2 /CUMM (1.2-3.4); ABSOLUTE MONOCYTE COUNT 0.8 /CUMM (0.10-0.60); BASOPHIL % 0.5 % (0.0-2.0); EOSINOPHIL % 1.6 % (0-5); GRANULOCYTE % 72.2 % (42.2-75.2); MEAN CORPUSCULAR HGB 29.6 PG (27.0-31.0); MEAN CORPUSCULAR HGB CONC 33.5 G/DL (33.0-37.0); MEAN CORPUSCULAR VOLUME 88.3 FL (81.0-99.0); MEAN PLATELET VOLUME 8.2 FL (7.4-10.4); PLATELET COUNT 228 /CUMM (130-400); RED BLOOD CELL CT 3.87 /CUMM (4.20-5.40); WHITE BLOOD CELL COUNT 7.9 /CUMM (4.8-10.8)
[2017-09-08 08:30] LABS: HEMATOCRIT 34.2 % (37-47)
[2017-09-08 14:37] VITALS: BP 110/72
[2017-09-08 22:44] VITALS: BP 100/70
[2017-09-09 06:20] VITALS: BP 92/48
--- NOTE | 2017-09-09 07:16 | PN- General Surgery ---
See Addendum Subjective Subjective: Patient reports pain is improved since admission and located on the right side and suprapubic region and is well controlled with Tylenol. She denies any fever or chills. She is tolerating clears without any nausea or vomiting. She reports passing flatus. Denies moving her bowels. Objective Vital Signs and I&Os Vital Signs Date Time Temp Pulse Resp B/P B/P Pulse O2 O2 Flow FiO2 Mean Ox Delivery Rate 09/09 619 97.9 63 20 92/48 93 Room Air 09/08 2244 98.1 61 20 100/70 94 Room Air 09/08 1437 98.6 74 20 110/72 93 Room Air 09/08 0925 115/80 Intake & Output 09/09 0809/09 0000 09/08 1600 09/08 0809/08 0000 09/07 1600 Intake Total 400 2400 850 320 Output Total 300 Balance 400 2400 850 20 Intake, IV 400 120 800 320 Intake, Oral 2280 50 0 Number 0 0 Bowel Movements Output, Urine 300 Patient 130 lb 130 lb Weight Weight Reported by Patient Estimated Measurement Method Physical Exam: Gen - awake an alert resting comfortably in NAD Cardac -S1S2 noted, RRR Lungs - CTAB Abdomen - Soft, nondistended, hyperactive bowel sounds, mildly tender to palpation in mid-lower left and suprapubic region, no rebound or guarding noted Ext - no edema or calf tenderness B/L Current Medications: Current Medications Sig/Eliza Start time Last Medication Dose Route Stop Time Status Admin Acetaminophen 1,000 MG .STK-MED ONE 09/08 1652 DC IV 09/08 1653 Acetaminophen 650 MG Q6P PRN 09/07 2244 AC PO Acetaminophen 1,000 MG Q6H PRN 09/07 2245 AC 09/09 N/A 1 UNIT IV 0301 Ceftriaxone Sodium 1,000 MG DAILY 09/08 1000 AC 09/08 IV 0925 Dextrose/Sodium 1,000 ML Q10H 09/07 2230 AC 09/08 Chloride IV 2302 Diazepam 2 MG BID PRN 09/07 1945 AC 09/08 PO 1252 Heparin Sodium 5,000 UNIT Q8 09/08 0600 AC (Porcine) SC Lisinopril 10 MG DAILY 09/08 1000 AC 09/08 PO 0925 Metronidazole 500 MG IQ8 09/08 0000 AC 01/31 N/A 1 UNIT IV 2301 Morphine Sulfate 4 MG Q2P PRN 09/07 2244 AC IV Omeprazole 40 MG DAILY AC 09/08 0700 AC 09/09 PO 0633 Ondansetron HCl 4 MG Q6P PRN 09/07 2244 AC IV Oxycodone/ 1 TAB Q4P PRN 09/07 2244 AC Acetaminophen PO Oxycodone/ 2 TAB Q4P PRN 09/07 2244 AC Acetaminophen PO Patient Medication 1 ED ONE ONE 09/08 1100 DC Teaching ED 09/08 1101 Promethazine HCl 12.5 MG Q6P PRN 09/07 2244 AC IV 09/14 2243 Results Last 48 Hours of Labs: Laboratory Tests 09/08 09/07 0721 1520 Chemistry Sodium (137 - 145 mmol/L) 142 Potassium (3.5 - 5.1 mmol/L) 3.9 Chloride (98 - 107 mmol/L) 110 H Carbon Dioxide (22 - 30 mmol/L) 23 Anion Gap (5 - 16) 9 BUN (7 - 17 mg/dL) 11 Creatinine (0.5 - 1.0 mg/dL) 0.7 Estimated GFR (>60 ml/min) > 60 BUN/Creatinine Ratio (7 - 25 %) 15.7 Hematology CBC w Diff NO MAN DIFF REQ WBC (4.8 - 10.8 /CUMM) 7.9 RBC (4.20 - 5.40 /CUMM) 3.87 L Hgb (12.0 - 16.0 G/DL) 11.5 L Hct (37 - 47 %) 34.2 L MCV (81.0 - 99.0 FL) 88.3 MCH (27.0 - 31.0 PG) 29.6 MCHC (33.0 - 37.0 G/DL) 33.5 RDW (11.5 - 14.5 %) 13.0 Plt Count (130 - 400 /CUMM) 228 MPV (7.4 - 10.4 FL) 8.2 Gran % (42.2 - 75.2 %) 72.2 Lymphocytes % (20.5 - 51.1 %) 15.3 L Monocytes % (1.7 - 9.3 %) 10.4 H Eosinophils % (0 - 5 %) 1.6 Basophils % (0.0 - 2.0 %) 0.5 Absolute Granulocytes (1.4 - 6.5 /CUMM) 5.7 Absolute Lymphocytes (1.2 - 3.4 /CUMM) 1.2 Absolute Monocytes (0.10 - 0.60 /CUMM) 0.8 H Absolute Eosinophils (0.0 - 0.7 /CUMM) 0.1 Absolute Basophils (0.0 - 0.2 /CUMM) 0 Urines Urine Color (YEL,AMB,STR) YEL Urine Clarity (CLEAR) CLEAR Urine pH (5.0 - 8.0) 6.0 Ur Specific [place] (1.001 - 1.035) 1.010 Urine Protein (NEG,<30 MG/DL) NEG Urine Ketones (NEG) 15 H Urine Nitrite (NEG) NEG Urine Bilirubin (NEG) NEG Urine Urobilinogen (0.1 - 1.0 EU/dl) 0.2 Ur Leukocyte Esterase (NEG) NEG Ur Microscopic EXAM NOT REQUIRED Urine Hemoglobin (NEG) NEG Urine Glucose (N MG/DL) NEG 09/07 1331 Chemistry Sodium (137 - 145 mmol/L) 143 Potassium (3.5 - 5.1 mmol/L) 4.1 Chloride (98 - 107 mmol/L) 103 Carbon Dioxide (22 - 30 mmol/L) 26 Anion Gap (5 - 16) 14 BUN (7 - 17 mg/dL) 16 Creatinine (0.5 - 1.0 mg/dL) 0.8 Estimated GFR (>60 ml/min) > 60 BUN/Creatinine Ratio (7 - 25 %) 20.0 Glucose (65 - 99 mg/dL) 110 H Calcium (8.4 - 10.2 mg/dL) 10.7 H Total Bilirubin (0.2 - 1.3 mg/dL) 1.1 AST (14 - 36 U/L) 15 ALT (9 - 52 U/L) 20 Alkaline Phosphatase (<127 U/L) 99 Troponin I (< 0.11 ng/ml) < 0.01 Total Protein (6.3 - 8.2 g/dL) 6.9 Albumin (3.5 - 5.0 g/dL) 4.3 Globulin (1.9 - 4.2 gm/dL) 2.6 Albumin/Globulin Ratio (1.1 - 2.2 %) 1.7 Hematology CBC w Diff NO MAN DIFF REQ WBC (4.8 - 10.8 /CUMM) 14.4 H RBC (4.20 - 5.40 /CUMM) 4.91 Hgb (12.0 - 16.0 G/DL) 14.4 Hct (37 - 47 %) 43.1 MCV (81.0 - 99.0 FL) 87.9 MCH (27.0 - 31.0 PG) 29.3 MCHC (33.0 - 37.0 G/DL) 33.4 RDW (11.5 - 14.5 %) 13.0 Plt Count (130 - 400 /CUMM) 289 MPV (7.4 - 10.4 FL) 8.1 Gran % (42.2 - 75.2 %) 85.6 H Lymphocytes % (20.5 - 51.1 %) 7.3 L Monocytes % (1.7 - 9.3 %) 6.9 Eosinophils % (0 - 5 %) 0.1 Basophils % (0.0 - 2.0 %) 0.1 Absolute Granulocytes (1.4 - 6.5 /CUMM) 12.3 H Absolute Lymphocytes (1.2 - 3.4 /CUMM) 1.1 L Absolute Monocytes (0.10 - 0.60 /CUMM) 1.0 H Absolute Eosinophils (0.0 - 0.7 /CUMM) 0 Absolute Basophils (0.0 - 0.2 /CUMM) 0 Assessment/Plan Assessment/Plan 62 F admitted with diverticulitis with microperforation, with improved abdominal tenderness and resolved leukocytosis. Advance to fulls Pain regimen prn Bradley/flag OOB, ambulate, alps, hsq Serial abd exams F/u labs Will d/w Dr. Lin Core Measures Venous Thromboembolism VTE Risk Factors Age>40 No Mechanical VTE Prophylaxis d/t N/A MechProphylax Ordered No VTE Pharm Prophylaxis d/t NA PharmProphylax ordered
[2017-09-09 08:04] VITALS: BP 120/78
[2017-09-09 08:53] LABS: ABSOLUTE BASOPHIL COUNT 0 /CUMM (0.0-0.2); ABSOLUTE EOSINOPHIL COUNT 0.2 /CUMM (0.0-0.7); ABSOLUTE LYMPH COUNT 1.2 /CUMM (1.2-3.4); ABSOLUTE MONOCYTE COUNT 0.5 /CUMM (0.10-0.60); BASOPHIL % 0.6 % (0.0-2.0); EOSINOPHIL % 4.5 % (0-5); GRANULOCYTE % 60.9 % (42.2-75.2); HEMATOCRIT 30.5 % (37-47); MEAN CORPUSCULAR HGB 29.8 PG (27.0-31.0); MEAN CORPUSCULAR VOLUME 87.6 FL (81.0-99.0); MEAN PLATELET VOLUME 8.3 FL (7.4-10.4); PLATELET COUNT 215 /CUMM (130-400); RBC DISTRIBUTION WIDTH 13.2 % (11.5-14.5); RED BLOOD CELL CT 3.48 /CUMM (4.20-5.40); WHITE BLOOD CELL COUNT 4.9 /CUMM (4.8-10.8)
[2017-09-09 15:10] VITALS: BP 110/70
[2017-09-09 22:24] VITALS: BP 112/70
[2017-09-10 07:14] VITALS: BP 116/78
--- NOTE | 2017-09-10 11:29 | PN- General Surgery ---
Subjective Subjective: No acute overnight events reported. Patient states that pain is improving. Has passed flatus, no bm. Denies chest odalys, shortness of breath and difficulty breathing. Denies nausea and vomitting. Has been voiding without difficulty. Has not ambulated, only has been oob to bathroom or chair. Objective Vital Signs and I&Os Vital Signs Date Time Temp Pulse Resp B/P B/P Pulse O2 O2 Flow FiO2 Mean Ox Delivery Rate 09/10 1025 76 132/62 09/10 0714 98.1 68 16 116/78 94 Room Air 09/09 2224 98.0 66 16 112/70 94 Room Air 09/09 1510 98.0 75 20 110/70 94 Room Air Intake & Output 09/10 1600 09/10 0800 09/10 0000 09/09 1600 09/09 0800 09/09 0000 Intake Total 1000 1520 1500 1000 400 Output Total Balance 1000 1520 1500 1000 400 Intake, IV 777 762 8251 800 400 Intake, Oral 200 720 500 200 Number 0 Bowel Movements Physical Exam: General: Alert and oriented x3, no acute distress Cardiac: RRR, s1s2 Pulm: CTA bilaterally Abdomen: Soft, non-distended, +bs x4 quadtants. Tenderness on LUQ, no guarding , no rebound tenderness, no peritonitic symptoms. Extremites: Moves all extremities, distal sensation intact. Skin warm and well perfused. Bilateral calves soft and non-tender. Assessment/Plan Assessment/Plan This is a 62 year old female, hospital day 3 for diverticulitis with micro perf -Continue antibiotics -Advance diet to low residual -Continue OOB, ambulation encouraged -Anticipate DC to home later today Will d/w Dr. Lin Core Measures Venous Thromboembolism VTE Risk Factors Age>40 No Mechanical VTE Prophylaxis d/t N/A MechProphylax Ordered No VTE Pharm Prophylaxis d/t NA PharmProphylax ordered
[2017-09-10 15:52] VITALS: BP 120/78
[2017-09-10] MEDS ORDERED: CIPRO500 M1 PO ×2 (20:27→20:29)
[2017-09-10] MEDS ORDERED: FLAGYL500 MG PO ×2 (20:27→20:29)
--- NOTE | 2017-09-10 20:31 | Patient Discharge Instructions ---
Discharge Instructions General Discharge Information You were seen/treated for: Diverticulitis with microperf You had these procedures: Conservative management with bowel rest and iv antibiotic therapy Watch for these problems: Worsening abdominal pain Worsening abdominal distension Fever greater than 101.5 Persistent nausea and vomitting Inability to move bowels Bloody bowel movement or vomit Special Instructions: Diverticulitis diet, advance as tolerated. Avoid fibrous, difficult to digest foods Diet Continue normal diet: No Recommended Diet: Low Residue Activity Full Activity/No Limits: No Activity Self Limited: Yes Acute Coronary Syndrome Inclusion Criteria At DC or during hospital stay patient has or had the following: ACS DIAGNOSIS No Discharge Core Measures Meds if any: Prescribed or Continued at Discharge Meds if any: NOT Prescribed or Continued at Discharge Congestive Heart Failure Inclusion Criteria At DC or during hospital stay patient has or had the following: CHF DIAGNOSIS No Discharge Core Measures Meds if any: Prescribed or Continued at Discharge Meds if any: NOT Prescribed or Continued at Discharge Cerebrovascular accident Inclusion Criteria At DC or during hospital stay patient has or had the following: CVA/TIA Diagnosis No Discharge Core Measures Meds if any: Prescribed or Continued at Discharge Meds if any: NOT Prescribed or Continued at Discharge Venous thromboembolism Inclusion Criteria VTE Diagnosis No VTE Type NONE VTE Confirmed by (Test) NONE Discharge Core Measures - Per Current guidelines, there needs to be overlap - treatment for the first 5 days of Warfarin therapy. - If discharged on Warfarin prior to 5 days of - overlap therapy, the patient will need to be - assessed for post discharge needs including - *Post discharge parental anticoagulation - *Warfarin and/or parental anticoagulation education - *Follow up date to check INR post discharge At least 5 days overlap therapy as Inpatient No Meds if any: Prescribed or Continued at Discharge Note: Overlap Therapy is Warfarin and Anticoagulant Meds if any: NOT Prescribed or Continued at Discharge
[2017-09-10 22:12] VITALS: BP 100/64
[2017-09-11 07:06] VITALS: BP 104/58
[2017-09-11] MEDS ORDERED: FLAGYL500 MG PO (08:08)
[2017-09-11] MEDS ORDERED: CIPRO500 M1 PO (08:08)
--- NOTE | 2017-09-11 08:12 | PN- General Surgery ---
Subjective Subjective: Awake, alert No complaints overnight except a slight feeling of "gas movement" in the upper left abdomen which comes and goes. Denies pain or nausea. Tolerating lrd. +flatus, +bm - one small, hard bm Objective Vital Signs and I&Os Vital Signs Date Time Temp Pulse Resp B/P B/P Pulse O2 O2 Flow FiO2 Mean Ox Delivery Rate 09/11 07 97.9 66 20 104/58 93 09/10 2212 97.5 58 20 100/64 96 Room Air 09/10 1552 97.5 66 20 120/78 94 Room Air 09/10 1025 76 132/62 Intake & Output 09/11 1600 09/11 0800 09/11 0000 09/10 1600 09/10 0800 09/10 0000 Intake Total 480 1450 1200 1000 1520 Output Total 800 800 Balance 480 234 313 3692 1520 Intake, IV 500 800 800 800 Intake, Oral 480 950 400 200 720 Number 2 0 Bowel Movements Output, Urine 800 800 Patient 130 lb Weight Physical Exam: vss, afebrile General: alert and oriented times three Chest: clear anteriorly bilaterally, RRR Abd: soft, nontender even to deep palpation, nondistended, good bs Ext: warm, no edema Assessment/Plan Assessment/Plan 62yo female admitted with diverticulitis, micro perf, stable and advanced to lrd discussed with Dr Lin plan to dc home with 2 weeks of cipro/flagyl low residue diet follow up with Dr Lin follow up with Dr Hawkins Core Measures Venous Thromboembolism VTE Risk Factors Age>40 No Mechanical VTE Prophylaxis d/t N/A MechProphylax Ordered No VTE Pharm Prophylaxis d/t NA PharmProphylax ordered
[2017-09-11 08:40] VITALS: BP 136/80
--- NOTE | 2017-09-11 11:52 | Surgical Discharge Summary ---
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 Home Who Do You Live With? Patient and family Services at Home: None What is Your Primary Language? Malian ETOH Use: denies use Review of Systems: see preop Hospital Course Course Attending Physician: Riley MILLS,Philippe Hernandez Primary Care Physician: Andry MILLS,[facility] Course: Patient was admitted to the surgical service for medical treatment of contained perforated diverticulitis. She improved with hydration. It was felt that the etiology of her dizziness and syncope was related to acute abdominal pain/ diverticulitis combined with dehydration and orthostasis. With bowel rest and IV antibiotics her abdominal pain improved. After return of bowel function she was started on a diet which was advanced over the course of 48 hours. At time of discharge she was tolerating a low fiber diet and had normal bowel function. Her leukocytosis had resolved. She was afebrile. Allergies: Coded Allergies: Sulfa (Sulfonamide Antibiotics) (UNKNOWN 11/07/15) Disposition Summary Disposition Principal Diagnosis: Acute diverticulitis Additional Diagnosis: Syncope secondary to dehydration Discharge Disposition: home or self care Discharge Instructions General Discharge Information Code Status: Full Code Patient's Diet: Regular low fiber Patient's Activity: Self-limited Follow-Up Instructions/Appts: 2 weeks Medications at Discharge Discharge Medications: Continue taking these medications: Diazepam (Valium) 10 MG TABLET 0.25 Tablet ORAL DAILY as needed for ANXIETY Lisinopril (Lisinopril) 10 MG TABLET 1 Tablet ORAL DAILY Qty = 30 Start taking the following new medications: Ciprofloxacin HCl (Cipro) 500 MG TABLET 1 Tablet ORAL TWICE DAILY Qty = 14 No Refills Instructions: . Metronidazole (Flagyl) 500 MG TABLET 1 Tablet ORAL TWICE DAILY Qty = 14 No Refills Instructions: . Copies To: Angie MILLS,Eugenio Marin; Andry MILLS,Hayley
== END 2017-09-11 12:40 | DRG 392 ==
LOC: ERH 11:36 → ERHI 19:03 → 2NB 19:03 → ENRESERV 19:53 → ENTRNSPT 20:38 → 2NB 20:48 → CMPTRNSPT 21:00 → ENPENDDIS 09-11 08:11 → 2NB 09-11 12:40
PROVIDERS: Physician Assistant Medical; Physician Assistant Surgical
DX: K57.20 Diverticulitis of large intestine with perforation and abscess without bleeding (principal); E86.0 Dehydration; R55 Syncope and collapse; I10 Essential (primary) hypertension; F41.9 Anxiety disorder, unspecified
CPT/HCPCS: 2NSBP; 36415; 74018; 74177; 81003; 82436; 93005; 93010; 96374; 96375; J0131; J0696; J1644; J2405; J2550; J7042

== ENCOUNTER 2017-11-23 07:08 | Emergency (ER) | payer OTHER ==
[~2017-11-23] VITALS: Ht 162.6 cm; Wt 58.1 kg
[2017-11-23 08:00] LABS: ABSOLUTE BASOPHIL COUNT 0 /CUMM (0.0-0.2); ABSOLUTE EOSINOPHIL COUNT 0 /CUMM (0.0-0.7); ABSOLUTE GRANULOCYTE CT 5.8 /CUMM (1.4-6.5); ABSOLUTE LYMPH COUNT 1.2 /CUMM (1.2-3.4); ABSOLUTE MONOCYTE COUNT 0.3 /CUMM (0.10-0.60); BASOPHIL % 0.4 % (0.0-2.0); EOSINOPHIL % 0.5 % (0-5); GRANULOCYTE % 79.2 % (42.2-75.2); HEMATOCRIT 43.4 % (37-47); MEAN CORPUSCULAR HGB 29.6 PG (27.0-31.0); MEAN CORPUSCULAR HGB CONC 33.8 G/DL (33.0-37.0); MEAN CORPUSCULAR VOLUME 87.4 FL (81.0-99.0); PLATELET COUNT 351 /CUMM (130-400); RBC DISTRIBUTION WIDTH 13.9 % (11.5-14.5); RED BLOOD CELL CT 4.96 /CUMM (4.20-5.40); WHITE BLOOD CELL COUNT 7.4 /CUMM (4.8-10.8)
--- NOTE | 2017-11-23 08:26 | ED GI/GU/ABDOMINAL COMPLAINT ---
History of Present Illness General Chief Complaint: Abdominal Pain/Flank Pain Stated Complaint: ABDOMINAL PAIN,NAUSEA,WEAKNESS Source: patient Exam Limitations: no limitations Vital Signs & Intake/Output Vital Signs & Intake/Output Vital Signs Date Time Temp Pulse Resp B/P B/P Pulse O2 O2 Flow FiO2 Mean Ox Delivery Rate 11/23 1559 97 11/23 1549 140/88 11/23 1445 97.8 79 18 142/96 98 Room Air 11/23 1226 98.1 75 18 151/83 99 Room Air 11/23 0904 98.2 76 18 141/88 96 Room Air 11/23 0713 96.8 104 18 130/89 97 Room Air Room Air Allergies Coded Allergies: Sulfa (Sulfonamide Antibiotics) (UNKNOWN 11/07/15) Reconcile Medications Ciprofloxacin HCl (Cipro) 500 MG TABLET 1 TAB PO BID DIVERTICULTITIS . Diazepam (Valium) 10 MG TABLET 0.25 TAB PO DAILY PRN ANXIETY (Reported) Lisinopril 10 MG TABLET 1 TAB PO DAILY HEART (Reported) Metronidazole (Flagyl) 500 MG TABLET 1 TAB PO BID DIVERTICULITIS . Triage Note: PT TO ED WITH C/O UPPER ABD PAIN, "FEELS FULL AND BURNING", " BENT OVER LAST WEEK AND THE PAIN WAS SHARP, FELT LIKE SOMETHING MOVED IN THERE". HX DIVERTICULITIS, LAST BM YESTERDAY "NOT ALOT". Triage Nurses Notes Reviewed? yes ? N Is pt currently ? No HPI: Patient presents for evaluation of a burning epigastric abdominal pain that began Wednesday night. Patient is describing intermittent episodes that last minutes at a time and seemed to spontaneously resolve. Patient states she has the pain currently. Patient also refers record strange taste in the mouth". Patient states she also experiences the pain up into her throat that results in coughing. Patient also refers feeling weak and tired with a pins and needles feeling in her arms. The patient is currently characterized as 3-4/10. Patient is also feeling nauseous and mildly headachy but denies vomiting or diarrhea. Patient did have one point try Zantac but discontinued this because it gave her a minty kind of "strange" taste in her mouth. (Margarita MILLS,Brigido King) Past History Travel History Traveled to [place] past 21 day No Medical History Any Pertinent Medical History? 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 No (Margarita MILLS,Brigido King) Review of Systems Review of Systems Constitutional: Reports: no symptoms. EENTM: Reports: no symptoms. Respiratory: Reports: no symptoms. Cardiovascular: Reports: no symptoms. GI: Reports: see HPI. Genitourinary: Reports: no symptoms. Musculoskeletal: Reports: no symptoms. Skin: Reports: no symptoms. Neurological/Psychological: Reports: no symptoms. Hematologic/Endocrine: Reports: no symptoms. Immunologic/Allergic: Reports: no symptoms. All Other Systems: Reviewed and Negative (Margarita MILLS,Brigido King) Physical Exam Physical Exam Gastrointestinal: SEE BELOW Comments: Gen.: Well-nourished, well-developed, no acute respiratory distress. Head: Normocephalic, atraumatic. Eyes: Normal inspection bilaterally Ears: Normal inspection bilaterally Nose: Normal inspection Throat/mouth : Moist mucosa Neck: Supple, full range of motion, no goiter Heart: Regular rate and rhythm, no murmurs rubs or gallops Lungs: Clear to auscultation bilaterally with normal air entry Chest: Nontender Back: Normal range of motion Abdomen: Soft, nontender, nondistended, normal bowel sounds Extremities: Normal range of motion grossly, equal radial pulses, no cyanosis clubbing or edema Neurologic: Cranial nerves grossly intact, speech is clear Skin: warm and dry Psychiatric: Calm, cooperative, no apparent delusions or hallucinations Core Measures ACS in differential dx? No Sepsis Present: No Sepsis Focused Exam Completed? No (Margarita MILLS,Brigido King) Progress Differential Diagnosis: DIVERTICULITIS, PANCREATITIS, COLITIS, FOCAL BOWEL OBSTRUCTION, PERFORATION Plan of Care: Orders Procedure Date/time Status Add-on Test (ER Only) 11/23 1452 Active LIPASE 11/23 0850 Complete Add-on Test (ER Only) 11/23 0827 Active EKG 11/23 0825 Active TSH REFLEX 11/23 0754 Complete TROPONIN LEVEL 11/23 0753 Complete COMPREHENSIVE METABOLIC PANEL 11/23 0753 Complete CBC WITHOUT DIFFERENTIAL 11/23 0753 Complete Laboratory Tests 11/23/17 0850: Anion Gap 14, Estimated GFR > 60, BUN/Creatinine Ratio 20.0, Glucose 103 H, Calcium 11.1 H, Total Bilirubin 0.9, AST 17, ALT 18, Alkaline Phosphatase 94, Troponin I < 0.01, Total Protein 7.2, Albumin 4.3, Globulin 2.9, Albumin/ Globulin Ratio 1.5, Lipase 72, TSH &T3 &Free T4 Intrp 0.512 11/23/17 0754: CBC w Diff NO MAN DIFF REQ, RBC 4.96, MCV 87.4, MCH 29.6, MCHC 33.8, RDW 13.9, MPV 8.0, Gran % 79.2 H, Lymphocytes % 15.8 L, Monocytes % 4.1, Eosinophils % 0.5, Basophils % 0.4, Absolute Granulocytes 5.8, Absolute Lymphocytes 1.2, Absolute Monocytes 0.3, Absolute Eosinophils 0, Absolute Basophils 0 Initial ED EKG: NSR, no ST T wave changes Comments: 11/23/2017 9:59:41 AM I have updated Odin on test results. She states that she is feeling better after the Maalox but is still having abdominal pain particularly in the epigastric area. Given her history of diverticulitis and prior resection I have ordered a CT scan. 11/23/2017 11:07:26 AM Patient signed out to Dr. Davison. (Margarita MILLS,Brigido iKng) Departure Departure Condition: Stable Referrals: Andry MILLS,Hunter (PCP/Family) Departure Forms: Customer Survey General Discharge Information (Margarita MILLS,Brigido King) Departure Disposition: STILL A PATIENT Clinical Impression Primary Impression: Abdominal pain Comments 11/23/17 The patient was signed out to me by Dr. Avila. She is pending CT scan. 11/23/17 The patient was signed out to me by Dr. Avila. Her abdomen is soft and nontender. Her symptoms improved. CT scan shows no acute changes. Labs are essentially unremarkable. She was discharged on Prilosec and told to follow-up with the roofing supervisor this week. PATIENT: ODIN SAENZ PRESENT AGE: 62 PATIENT ACCOUNT NO: [id number] : 54 LOCATION: [facility] ORDERING PHYSICIAN: Brigido Avila MD SERVICE DATE: 11/23/17 EXAM TYPE: CAT - CT ABD & PELVIS W ORAL & IV CO EXAMINATION: CT ABDOMEN AND PELVIS WITH CONTRAST CLINICAL INFORMATION: Epigastric abdominal pain. Recent history of diverticulitis. COMPARISON: 09/07/2017, 10/12/2017 TECHNIQUE: Multidetector volumetric imaging was performed of the abdomen and pelvis following IV administration of 95 mL of Optiray 320 intravenous contrast. Sagittal and coronal reformatted images were obtained on the technologist's workstation. DLP: 251 mGy-cm FINDINGS: LUNG BASES: There is reticular and platelike opacity in the right base with several foci of mineralization, unchanged. There are some platelike opacities in the left base suggesting atelectasis. The imaged heart and pericardium appear unremarkable. LIVER, GALLBLADDER, AND BILIARY TREE: The liver is normal in size, shape, and attenuation. There is a stable 7 mm hypoattenuating focus in the posterior right lobe of the liver, and a stable 5 mm hypoattenuating focus in the left lobe, statistically cysts or hemangiomas. No biliary ductal dilatation is present. The gallbladder is unremarkable with no evidence of radiopaque gallstones, gallbladder wall thickening, or obvious pericholecystic inflammatory changes. PANCREAS: Unremarkable. SPLEEN: Unremarkable. ADRENAL GLANDS: Mild thickening of the left adrenal gland, unchanged. KIDNEYS AND URETERS: The kidneys are normal in size, shape, and attenuation. No hydronephrosis, hydroureter, or calculi seen. No perinephric stranding. BLADDER: Unremarkable. GASTROINTESTINAL TRACT: The stomach is nondistended. No small bowel dilatation. There is good opacification of the colon with contrast. There is a stable anastomosis with suture material at the distal descending/sigmoid junction. There are several colonic diverticula. No surrounding inflammatory changes currently visualized. An appendix is not evident. No free intraperitoneal air. No fluid collections. ABDOMINAL WALL: No significant hernia is appreciated. LYMPH NODES: Normal. VASCULAR: Unremarkable apart from minor aortic and iliac calcifications PELVIC VISCERA: Uterus is retroverted. No adnexal masses. OSSEOUS STRUCTURES: No acute osseous abnormality is evident. There is a moderate dextroconvex lumbar scoliosis and mild multilevel spondylosis. No evidence of pars defects. IMPRESSION: 1. No acute intra-abdominal or intrapelvic pathology. 2. Numerous colonic diverticula and a colocolic anastomosis at the descending colonic/sigmoid junction. The previously seen descending colonic diverticulitis appears to have resolved. DICTATED BY: Omaira Parson MD DATE/TIME DICTATED:11/23/171421 LEATHER COLORER:ALFA DATE/TIME TRANSCRIBED:11/23/171421 CONFIDENTIAL, DO NOT COPY WITHOUT APPROPRIATE AUTHORIZATION. <Electronically signed in Other Vendor System> SIGNED BY: Omaira Parson MD 11/23/17 [id number] (Brigido Davison DO
--- NOTE | 2017-11-23 14:35 | CT SCAN REPORT ---
EXAMINATION: CT ABDOMEN AND PELVIS WITH CONTRAST CLINICAL INFORMATION: Epigastric abdominal pain. Recent history of diverticulitis. COMPARISON: 09/07/2017, 10/12/2017 TECHNIQUE: Multidetector volumetric imaging was performed of the abdomen and pelvis following IV administration of 95 mL of Optiray 320 intravenous contrast. Sagittal and coronal reformatted images were obtained on the technologist's workstation. DLP: 251 mGy-cm FINDINGS: LUNG BASES: There is reticular and platelike opacity in the right base with several foci of mineralization, unchanged. There are some platelike opacities in the left base suggesting atelectasis. The imaged heart and pericardium appear unremarkable. LIVER, GALLBLADDER, AND BILIARY TREE: The liver is normal in size, shape, and attenuation. There is a stable 7 mm hypoattenuating focus in the posterior right lobe of the liver, and a stable 5 mm hypoattenuating focus in the left lobe, statistically cysts or hemangiomas. No biliary ductal dilatation is present. The gallbladder is unremarkable with no evidence of radiopaque gallstones, gallbladder wall thickening, or obvious pericholecystic inflammatory changes. PANCREAS: Unremarkable. SPLEEN: Unremarkable. ADRENAL GLANDS: Mild thickening of the left adrenal gland, unchanged. KIDNEYS AND URETERS: The kidneys are normal in size, shape, and attenuation. No hydronephrosis, hydroureter, or calculi seen. No perinephric stranding. BLADDER: Unremarkable. GASTROINTESTINAL TRACT: The stomach is nondistended. No small bowel dilatation. There is good opacification of the colon with contrast. There is a stable anastomosis with suture material at the distal descending/sigmoid junction. There are several colonic diverticula. No surrounding inflammatory changes currently visualized. An appendix is not evident. No free intraperitoneal air. No fluid collections. ABDOMINAL WALL: No significant hernia is appreciated. LYMPH NODES: Normal. VASCULAR: Unremarkable apart from minor aortic and iliac calcifications PELVIC VISCERA: Uterus is retroverted. No adnexal masses. OSSEOUS STRUCTURES: No acute osseous abnormality is evident. There is a moderate dextroconvex lumbar scoliosis and mild multilevel spondylosis. No evidence of pars defects. IMPRESSION: 1. No acute intra-abdominal or intrapelvic pathology. 2. Numerous colonic diverticula and a colocolic anastomosis at the descending colonic/sigmoid junction. The previously seen descending colonic diverticulitis appears to have resolved.
[2017-11-23 15:49] VITALS: BP 140/88
== END 2017-11-23 16:00 ==
LOC: ERH 07:08
PROVIDERS: Emergency Medicine
DX: R10.10 Upper abdominal pain, unspecified (principal); R11.0 Nausea; R53.1 Weakness; I10 Essential (primary) hypertension; K57.92 Diverticulitis of intestine, part unspecified, without perforation or abscess without bleeding; K56.609 Unspecified intestinal obstruction, unspecified as to partial versus complete obstruction; Z87.891 Personal history of nicotine dependence
CPT/HCPCS: 74177; 93005; 93010

== ENCOUNTER 2018-02-09 21:46 | Emergency (ER) | payer OTHER ==
[~2018-02-09] VITALS: Ht 157.5 cm; Wt 61.2 kg
--- NOTE | 2018-02-09 22:04 | ED UPPER/LOWER EXTREMITY COMPL ---
History of Present Illness General Chief Complaint: Upper Extremity Injury Stated Complaint: L ARM ?BROKEN Source: patient Exam Limitations: no limitations Vital Signs & Intake/Output Vital Signs & Intake/Output Vital Signs Date Time Temp Pulse Resp B/P B/P Pulse O2 O2 Flow FiO2 Mean Ox Delivery Rate 02/09 2324 98.5 82 18 129/82 98 Room Air 02/09 2152 98.7 91 24 152/95 97 Room Air ED Intake and Output 02/10 0000 02/09 1200 Intake Total 0 Output Total Balance 0 Intake, Oral 0 Patient 135 lb Weight Weight Reported by Patient Measurement Method Allergies Coded Allergies: Sulfa (Sulfonamide Antibiotics) (Mild, RASH 02/09/18) Reconcile Medications Ciprofloxacin HCl (Cipro) 500 MG TABLET 1 TAB PO BID DIVERTICULTITIS . Diazepam (Valium) 10 MG TABLET 0.25 TAB PO DAILY PRN ANXIETY (Reported) Lisinopril 10 MG TABLET 1 TAB PO DAILY HEART (Reported) Metronidazole (Flagyl) 500 MG TABLET 1 TAB PO BID DIVERTICULITIS . Oxycodone HCl/Acetaminophen (Percocet 5-325 MG Tablet) 5 MG-325 MG TABLET 1 TAB PO BID PAIN Triage Note: TRIAGE: PT TO ER C/C L ARM PAIN S/P FALL APPROX 1 HR PRINT BUYER. ANTIONETTE WRAP AND HARD BOARD APPLIED AND PT MEDICATED WITH TYLENOL AT TRIAGE TAKEN TO ROOM 4 FOR FURTHER EVAL. Triage Nurses Notes Reviewed? yes Onset: Abrupt Duration: day(s): Timing: recent history Severity: moderate, severe Pain/Injury Location: Left: Forearm. Method of Injury: fall No Modifying Factors: none HPI: 62-year-old female comes into the emergency room for further evaluation of left forearm pain. Patient reports that she slipped when she was at home. She was running and she fell on her left forearm. Denies any preceding symptoms of lightheaded dizziness. Denies any trauma anywhere else. Comes in for further evaluation. (Mick Francis) Past History Travel History Traveled to [place] past 21 day No Medical History Any Pertinent Medical History? see below for history Neurological: NONE EENT: NONE Cardiovascular: hypertension Respiratory: NONE Gastrointestinal: diverticulitis, BOWEL OBSTRUCTION Hepatic: NONE Renal: NONE Musculoskeletal: NONE Psychiatric: anxiety Endocrine: hyperparathyroidism Blood Disorders: NONE Cancer(s): NONE OUTSIDE B2B SALES/Reproductive: NONE History of MRSA: No History of VRE: No History of CDIFF: No Surgical History Surgical History: appendectomy, BOWEL RESECTION LYSIS OF ADHESIONS lysis of adhesion Psychosocial History Who do you live with Patient and family Services at Home None What is your primary language Citizen Of [place] Tobacco Use: Quit >30 days ago ETOH Use: occasional use Illicit Drug Use: denies illicit drug use Family History Family History, If Any: SISTER FHx: diverticulitis Hx Contributory? No (Mick Francis) Review of Systems Review of Systems Constitutional: Reports: no symptoms. EENTM: Reports: no symptoms. Respiratory: Reports: no symptoms. Cardiovascular: Reports: no symptoms. Gastrointestinal/Abdominal: Reports: no symptoms. Genitourinary: Reports: no symptoms. Musculoskeletal: Reports: see HPI. Skin: Reports: no symptoms. Neurological/Psychological: Reports: no symptoms. Hematologic/Endocrine: Reports: no symptoms. Immunological: Reports: no symptoms. All Other Systems: Reviewed and Negative (Mick Francis) Physical Exam Physical Exam General Appearance: well developed/nourished, mild distress Head: atraumatic Eyes: Bilateral: normal appearance. Ears, Nose, Throat: normal ENT inspection, hearing grossly normal Neck: normal inspection Cardiovascular/Respiratory: no respiratory distress Back: normal inspection Elbow Left: normal range of motion, bONY TENDERNESS, NO DEFORMITY, RADIAL PULSE SENSATION INTACT, Neurologic/Tendon: normal sensation, normal motor functions, normal tendon functions, responds to pain, no evidence tendon injury, no pulse deficit Skin: intact, normal color, warm/dry Lymphatic: no anterior cervical hannah (Mick Francis) Progress Differential Diagnosis: contusion, dislocation, fracture, sprain, tendon injury Plan of Care: Orders Procedure Date/time Status Durable Medical Equipment 02/09 5618 Active Diagnostic Imaging: Viewed by Me: Radiology Read. Discussed w/RAD: Radiology Read. Radiology Impression: PATIENT: AMBERLY SAENZ PRESENT AGE: 62 PATIENT ACCOUNT NO: [id number] : 54 LOCATION: [facility] ORDERING PHYSICIAN: Mick HIDALGO SERVICE DATE: 02/09/18 EXAM TYPE : RAD - XRY-FOREARM, LEFT; XRY-WRIST COMPLETE-LEFT EXAMINATION: 1. Left forearm. 2. Left wrist. CLINICAL INFORMATION: Fall. Pain. COMPARISON: None TECHNIQUE: AP and lateral views of the left forearm were obtained. FINDINGS: 1. Left forearm. There is a transverse fracture through the metadiaphysis of the distal radius. Fracture does not involve the articular surface of the radius. There is no significant displacement and no significant angulation of the fracture. The proximal shaft of the radius and the ulna are intact. 2. Left wrist. There is a transverse fracture through the metadiaphysis distal radius. The fracture does not involve the articular surface of the radius. There is no significant displacement and no significant angulation the fracture IMPRESSION: Nondisplaced Transverse fracture through the metadiaphysis of the distal radius. DICTATED BY: Gregory Sexton MD DATE/TIME DICTATED:02/09/182250 JOB PLACEMENT COUNSELOR:ALFA DATE/TIME TRANSCRIBED:02/09/182250 CONFIDENTIAL, DO NOT COPY WITHOUT APPROPRIATE AUTHORIZATION. <Electronically signed in Other Vendor System> SIGNED BY: Gregory Sexton MD 02/09/182257 (Mick Francis) Departure Departure Disposition: HOME OR SELF CARE Condition: Stable Clinical Impression Primary Impression: Closed fracture of left distal radius Referrals: Francis MILLS,Kevin Wilde MD,Hunter (PCP/Family) Additional Instructions: Take Percocet for pain. Follow-up with orthopedic doctor. Return if any other concerns worsening symptoms. Please go over all results of today's visit with your primary care doctor. Contact your primary care doctor to let them know you were here in the emergency room. There may be nonspecific findings which may not be related to your visit today here in the emergency room but may require further evaluation and chronic monitoring by your primary care doctor. If you had a laceration today the chance of foreign body always remains. You should follow-up with your primary care doctor for recheck in 3-5 days for a wound check. If you had an x-ray done there is a chance that a fracture could have been missed on initial read and you should follow-up with your primary care doctor for repeat x-rays if symptoms persist. If your blood pressure was elevated here in the emergency room please have rechecked by [facility] primary care doctor within the next 48. If you were prescribed a narcotic here in the emergency room or any type of controlled substances you're not allowed to drive while taking this medication or operate any type of heavy machinery. Narcotics can make you feel lightheaded dizziness nausea and can cause constipation. You may need to pick up man a stool softener. Thank you for choosing [facility] emergency room. Please return to the emergency room immediately if you have any other concerns worsening of symptoms. Departure Forms: Customer Survey General Discharge Information Prescriptions: Current Visit Scripts Oxycodone HCl/Acetaminophen (Percocet 5-325 MG Tablet) 1 TAB PO BID #10 TAB (Mick Francis) PA/PROJECT MANAGEMENT SPECIALIST Co-Sign Statement Statement: ED Attending supervision documentation- [] I saw and evaluated the patient. I have also reviewed all the pertinent lab results and diagnostic results. I agree with the findings and the plan of care as documented in the PA's/PROJECT MANAGEMENT SPECIALIST's documentation. [x] I have reviewed the ED Record and agree with the PA's/PROJECT MANAGEMENT SPECIALIST's documentation. [] Additions or exceptions (if any) to the PAs/PROJECT MANAGEMENT SPECIALIST's note and plan are summarized below: [] (Mandi MILLS,Dallas Goodman) Procedures Splinting Location: left wrist Manual Alignment Performed: No Hand-Made Type: orthoglass Splint: sugar-tong Splint Applied By: splint applied by me Pre-Proc Neuro Vasc Exam: normal Post-Proc Neuro Vasc Exam: normal (Mick Francis)
--- NOTE | 2018-02-09 22:58 | RADIOLOGY REPORT ---
EXAMINATION: 1. Left forearm. 2. Left wrist. CLINICAL INFORMATION: Fall. Pain. COMPARISON: None TECHNIQUE: AP and lateral views of the left forearm were obtained. FINDINGS: 1. Left forearm. There is a transverse fracture through the metadiaphysis of the distal radius. Fracture does not involve the articular surface of the radius. There is no significant displacement and no significant angulation of the fracture. The proximal shaft of the radius and the ulna are intact. 2. Left wrist. There is a transverse fracture through the metadiaphysis distal radius. The fracture does not involve the articular surface of the radius. There is no significant displacement and no significant angulation the fracture IMPRESSION: Nondisplaced Transverse fracture through the metadiaphysis of the distal radius.
[2018-02-09] MEDS ORDERED: PERCOCET 5-3251 EACH PO (23:19)
[2018-02-09 23:24] VITALS: BP 129/82
== END 2018-02-09 23:49 ==
LOC: ERH 21:46
DX: S59.202A Unspecified physeal fracture of lower end of radius, left arm, initial encounter for closed fracture (principal); W01.0XXA Fall on same level from slipping, tripping and stumbling without subsequent striking against object, initial encounter; Y93.02 Activity, running; Y92.9 Unspecified place or not applicable
CPT/HCPCS: 73090-LT; 73110-LT